=== PATIENT | male | born 1950 | race Caucasian/White ===

== ENCOUNTER 2019-03-14 15:59 | Inpatient (IN) | payer MEDICARE ==
[~2019-03-14 15:59] MED LIST: SODIUM CHLORIDE 0.9% (PF) 10 ML VIAL ONE; niCARdipine 25 MG/10 ML VIAL ONE
[2019-03-14] MEDS ORDERED: EPINEPHrine 10 ML SYRINGE (0.1 MG/ML) ONE (16:00)
[2019-03-14] MEDS ORDERED: SODIUM BICARB 8.4% 50 ML SYR (1 MEQ/ML) ONE (16:00)
[2019-03-14] MEDS ORDERED: BIVALIRUDIN BOLUS 250 MG/50 ML IV ONE (16:25)
[2019-03-14] MEDS ORDERED: BIVALIRUDIN 250 MG in SODIUM CHLORIDE 0.9% 50 ML IV ONE (16:25)
[2019-03-14] MEDS ORDERED: SODIUM CHLORIDE 0.9% 500 ML 500 ML IV ONE ×7 (16:30→23:25)
[2019-03-14 16:40] LABS: Basophils # (A) 0.1 k/uL (0-0.2); Basophils % (A) 1 %; Eosinophils # (A) 0.2 k/uL (0-0.7); Eosinophils % (A) 2 %; HCT 37.7 % (39.0-53.0); HGB 12.5 gm/dL (13.0-17.5); Lymphocytes # (A) 3.9 k/uL (1.0-4.8); Lymphocytes % (A) 27 %; MCH 31.1 pg (25.0-35.0); MCV 94.1 fL (80.0-100.0); Mean Platelet Volume 7.4; Monocytes # (A) 0.4 k/uL (0-1.0); Monocytes % (A) 3 %; Neutrophils # (A) 9.5 k/uL (1.3-7.7); Neutrophils % (A) 67 %; Platelet Count 133 k/uL (150-450); RDW 14.2 % (11.5-15.5); WBC 14.2 k/uL (3.8-10.6)
[2019-03-14 16:48] LABS: Albumin 2.8 g/dL (3.5-5.0); Calcium 7.5 mg/dL (8.4-10.2); Potassium 4.1 mmol/L (3.5-5.1); Total Bilirubin 1.1 mg/dL (0.2-1.3); Total Protein 4.8 g/dL (6.3-8.2)
--- NOTE | 2019-03-14 16:53 | ED ---
General Adult HPI - General Stated complaint: Cardiac Arrest Time Seen by Provider: 03/14/19 16:02 - History of Present Illness Initial comments: Dictation was produced using [employer] dictation software. please excuse any grammatical, word or spelling errors. Chief Complaint: 68-year-old male brought in for cardiac arrest. History of Present Illness: Patient 68-year-old male who is brought in by EMS for cardiac arrest. According to EMS patient was down for approximately 10-20 minutes. went away to the grocery store for a short time. She came home and noticed that he was on the ground EMS was called. Patient was found in cardiac arrest. CPR was started patient was resuscitated. He had an incident where he lost pulses while en route. Patient was allegedly complaining of some shoulder pain the day prior. As far as we know reports the patient does not have any medical history or cardiac history. Patient was intubated in route. EMS performed prehospital EKG showing signs of inferior STEMI. Unable to obtain ROS secondary to mental status PHYSICAL EXAM: General Impression: Obtunded HEENT: Normocephalic atraumatic, fixed dilated pupils, pale Cardiovascular: Bradycardic Chest: Bilateral lung sounds Abdomen: abdomen soft, non-tender, non-distended, no organomegaly Musculoskeletal: no peripheral edema Motor: no focal deficits noted Neurological: Fixed and dilated pupils ED course: 68-year-old male presents with cardiac arrest. Prehospital EKG is performed showing ST segment elevation OK with ST elevations to the inferior leads. She hypotensive bradycardic upon initial arrival. He is intubated in route with 8 ET tube. Patient arrived to the emergency Department with pulses. He then began to become bradycardic. CPR was continued for several minutes with returns of spontaneous circulation. Surgeries catheter line was placed under ultrasound guidance to the left groin. Cardiology was notified it right away. Patient then again lost pulses. Cardiology was at bedside reviewed EKG and spoke to family. They recommend patient be taken back to the emergency depart ment. CPR was continued and patient did receive return of spontaneous circulation. Patient is dispositioned to Lab for cardiac intervention. Prior to disposition to the general labor cardiology who requested starting dopamine pressor infusion. Patient case was discussed with Dr. madrid't was willing to accept admission. Cardiology did not request Cipro there me a protocol. Furthermore they did not want arterial line. EKG interpretation: Ventricular rate 96, undetermined rhythm, right bundle br anch block, acute myocardial infarction, QS 134, QTC 593. EKG consistent with ST segment elevation OK - Related Data Home Medications Medication Instructions Recorded Confirmed [place] Carbonate [[place] 300 mg PO BID 03/14/19 03/14/19 Carbonate ER] Lovastatin [Altoprev] 20 mg PO DAILY 03/14/19 03/14/19 Metoprolol Succinate [Toprol XL] 100 mg PO DAILY 03/14/19 03/14/19 Temazepam 7.5 mg PO HS PRN 03/14/19 03/14/19 amLODIPine [Norvasc] 10 mg PO DAILY 03/14/19 03/14/19 cloNIDine HCL [Catapres] 0.1 mg PO HS 03/14/19 03/14/19 Allergies Allergy/AdvReac Type Severity Reaction Status Date / Time No Known Allergies Allergy Unverified 03/14/19 16:06 Review of Systems ROS Statement: Those systems with pertinent positive or pertinent negative responses have been documented in the HPI. ROS Other: All systems not noted in ROS Statement are negative. Procedures - Central Line Placement Left Femoral Consent Obtained: emergent situation Patient Placed on Monitor/Pulse Ox: Yes MD Prep: mask, gown, gloves Central Line Prep: Povidone-Iodine 1% Ultrasound Used for Placement: Yes Central Line Lumen Inserted: triple Central Line Position: good blood return, all ports aspirated, flushed, capped, sutured in place with 3-0 nylon Dressing Applied: Tegaderm Patient Tolerated Procedure: well Complications: none Medical Decision Making - Lab Data Result diagrams: 03/14/19 16:30 Lab Results 03/14/19 Range/Units 16:30 WBC 14.2 H (3.8-10.6) k/uL RBC 4.00 L (4.30-5.90) m/uL Hgb 12.5 L (13.0-17.5) gm/dL Hct 37.7 L (39.0-53.0) % MCV 94.1 (80.0-100.0) fL MCH 31.1 (25.0-35.0) pg MCHC 33.0 (31.0-37.0) g/dL RDW 14.2 (11.5-15.5) % Plt Count 133 L (150-450) k/uL Neutrophils % 67 % Lymphocytes % 27 % Monocytes % 3 % Eosinophils % 2 % Basophils % 1 % Neutrophils # 9.5 H (1.3-7.7) k/uL Lymphocytes # 3.9 (1.0-4.8) k/uL Monocytes # 0.4 (0-1.0) k/uL Eosinophils # 0.2 (0-0.7) k/uL Basophils # 0.1 (0-0.2) k/uL Critical Care Time Critical Care Time: Yes Total Critical Care Time: 31 Disposition Clinical Impression: Cardiac arrest, STEMI (ST elevation myocardial infarction) Disposition: ADMITTED IP TO THIS [facility] Condition: Critical Referrals: Senthil Rollins DO [Primary Care Provider] - 1-2 days Decision Time: 16:54
[2019-03-14] MEDS ORDERED: NALOXONE 0.4 MG/ML 1 ML VIAL IV PRN (16:55)
--- NOTE | 2019-03-14 16:58 | XR ---
EXAMINATION TYPE: XR chest 1V portable DATE OF EXAM: 03/14/2019 COMPARISON: NONE HISTORY: Check tube placement TECHNIQUE: Single frontal view of the chest is obtained. FINDINGS: Endotracheal tube is 5.5 cm from the elizabeth. There is no gross heart failure. There are ch est leads. Costophrenic angles are clear. Thoracic aorta is atheromatous. There is right shoulder pro sthesis. IMPRESSION: No heart failure or pulmonary consolidation.
[2019-03-14] MEDS ORDERED: ATROPINE SULFATE 0.1 MG/ML 10ML SYRINGE IV ONE (16:59)
[2019-03-14] MEDS: EPINEPHrine 10 ML SYRINGE (0.1 MG/ML) IV ONE ×5 (16:59→17:36)
[2019-03-14 17:05] LABS: INR 1.1 (<1.2); Prothrombin Time 11.6 sec (9.0-12.0)
[2019-03-14 17:06] LABS: Creatine Kinase MB 85.7 ng/mL (0.0-2.4)
[2019-03-14] MEDS ORDERED: LIDOCAINE 1% INJ 10MG/ML (20 ML MDV) SQ ONE (17:09)
[2019-03-14 17:12] LABS: Troponin I 15.4 ng/mL (0.000-0.034)
[2019-03-14] MEDS ORDERED: SODIUM BICARB 8.4% 50 ML VIAL (1 MEQ/ML) IV ONE ×2 (17:20→18:32)
[2019-03-14] MEDS ORDERED: SODIUM CHLORIDE 0.9% 1,000 ML IV ONE (17:40)
[2019-03-14] MEDS ORDERED: DOPamine DRIP 800 MG in DEXTROSE/WATER 1 250ML.BAG IV ONE ×2 (17:41→18:41)
[2019-03-14] MEDS ORDERED: IOPAMIDOL-370 100ML BTL INJ ONE ×2 (17:44→18:41)
[2019-03-14] MEDS ORDERED: EPINEPHrine 10 ML SYRINGE (0.1 MG/ML) IV ONE (17:45)
[2019-03-14] MEDS ORDERED: NOREPINEPHRINE 4 MG in SODIUM CHLORIDE 0.9% 250 ML IV ONE (17:46)
[2019-03-14] MEDS ORDERED: MORPHINE SULFATE 4 MG/ML SYRINGE ONE (18:02)
[2019-03-14] MEDS ORDERED: MORPHINE SULFATE 4 MG/ML SYRINGE IVP ONE (18:03)
[2019-03-14 18:12] LABS: ABG Base Excess -10.4 mmol/L; ABG HCO3 17 mmol/L (21-25); ABG PCO2 39 mmHg (35-45); ABG PH 7.25 (7.35-7.45); ABG PO2 120 mmHg (83-108); ABG TCO2 18 mmol/L (19-24)
[2019-03-14] MEDS ORDERED: TICAGRELOR 90 MG TAB ONE (18:27)
[2019-03-14] MEDS ORDERED: TICAGRELOR 90 MG TAB NG-TUBE ONE (18:35)
[2019-03-14] MEDS ORDERED: NOREPINEPHRINE 32 MG in SODIUM CHLORIDE 0.9% 218 ML IV SCH (18:45)
[2019-03-14 19:14] LABS: Glucose,Whole Blood 172 mg/dL (75-99)
[2019-03-14] MEDS: SODIUM CHLORIDE 0.9% 1,000 ML IV SCH (19:17)
[2019-03-14 19:25] LABS: Basophils # (A) 0.1 k/uL (0-0.2); Basophils % (A) 1 %; Eosinophils # (A) 0.3 k/uL (0-0.7); Eosinophils % (A) 1 %; HCT 45.4 % (39.0-53.0); Lymphocytes # (A) 1.3 k/uL (1.0-4.8); Lymphocytes % (A) 6 %; MCH 29.9 pg (25.0-35.0); MCHC 32.9 g/dL (31.0-37.0); MCV 90.8 fL (80.0-100.0); Mean Platelet Volume 7.4; Monocytes # (A) 0.6 k/uL (0-1.0); Monocytes % (A) 3 %; Neutrophils # (A) 19.5 k/uL (1.3-7.7); Neutrophils % (A) 90 %; Platelet Count 225 k/uL (150-450); RDW 14.7 % (11.5-15.5); WBC 21.8 k/uL (3.8-10.6)
[2019-03-14 19:31] LABS: ABG Base Excess -6.4 mmol/L; ABG HCO3 19 mmol/L (21-25); ABG PCO2 31 mmHg (35-45); ABG PH 7.39 (7.35-7.45); ABG PO2 >400 mmHg (83-108); ABG TCO2 20 mmol/L (19-24)
[2019-03-14 19:32] LABS: Calcium 7.4 mg/dL (8.4-10.2); Magnesium 2.4 mg/dL (1.6-2.3)
--- NOTE | 2019-03-14 19:35 | XR ---
EXAMINATION TYPE: XR chest 1V portable DATE OF EXAM: 03/14/2019 COMPARISON: Today HISTORY: Tube placement TECHNIQUE: Single frontal view of the chest is obtained. FINDINGS: Endotracheal tube is 5 cm from the elizabeth. There is right shoulder prosthesis. Lungs are c lear of consolidation. There is no heart failure. Heart size is normal. There is nasogastric tube wit h the tip probably in the gastric fundus. IMPRESSION: No active cardiopulmonary disease. Normal heart.
[2019-03-14] MEDS ORDERED: PROPOFOL 1,000 MG in EMPTY BAG 1 BAG IV SCH (20:00)
--- NOTE | 2019-03-14 20:04 | CONS ---
CONSULTATION Mr. Farias is a 68-year-old gentleman who is seen in the emergency room after sustaining a cardiac arrest at home. The history was obtained from the . This patient has a history of diabetes, hypertension, but had been otherwise healthy. The patient's went out for groceries and she came back in less than 20 minutes and the patient was found on the floor unresponsive. EMS was called. The EMS arrived within 10 minutes and the CPR was started. After doing CPR for about 10 minutes, the pulse was obtained and patient was brought to the emergency room. Intermittently transiently there was a loss of pulse with continued CPR. In the emergency room patient's blood pressure initially was 70. EKG was suggestive of acute inferior wall myocardial infarction. The patient needed again brief CPR. The patient is currently intubated, has a good pulse and the blood pressure was 110/70. The patient's condition was discussed with the . It was thoroughly explained to her that he could have sustained significant neurological damage, but they wanted to proceed with everything what can be done. In view of that, the patient was brought to the clinical laboratory scientist for immediate cardiac intervention. The patient has a history of diabetes and hypertension. PAST MEDICAL HISTORY: Includes history of knee surgery and shoulder surgery. PHYSICAL EXAMINATION: At present reveals a 68-year-old gentleman who is currently unresponsive. Pupils are dilated and not reacting to the light. Head/HEENT/neck examination is negative. First and second heart sounds are normal. No significant murmurs are noted. Lungs reveal bilateral diminished air entry. Abdomen is negative. EXTREMITIES: Peripheral pulses 2+. EKG is suggestive of acute inferior wall myocardial infarction. FINAL IMPRESSION: This patient is status post cardiac arrest with acute inferior wall myocardial infarction. The patient is status post CPR. It is possible that the patient could have suffered a significant neurological damage. The fully understands. We will proceed with a cardiac catheterization and for possible percutaneous intervention. The patient's overall prognosis is very poor. Thank you for the consultation. MMTANISHAL / IJN: [id number] /
--- NOTE | 2019-03-14 20:19 | CC ---
CARDIAC CATHETERIZATION REPORT DATE OF SERVICE: 03/14/2019. PROCEDURE PERFORMED: 1. Transvenous temporary pacemaker from left femoral venous approach with a 6-Russian introducer. 2. Coronary angiography. 3. PTCA and stenting of a totally occluded right coronary artery with a drug-eluting stent. 4. Intra-aortic balloon pump placement from right femoral arterial approach. PERFORMED BY: Dr. Emilio Bustamante. SEDATION: Moderate conscious sedation time was 57 minutes. CLINICAL INFORMATION: Mr. Kaden Farias is a 68-year-old gentleman with probably history of hypertension and hyperlipidemia who was brought to the emergency room as a cardiac arrest. Apparently, he was down for unknown amount of time, but after his called the EMS, there was at least 12 additional minutes before CPR was actually started based on the EMS run sheet. The patient had multiple times CPR in the ER along with being shocked and once he came to the cath lab manager, he also had CPR performed on the table in the cath lab manager. This patient was seen and evaluated by Dr. Deidra Mcclendon. He was advised coronary angiography and intervention knowing fully well that the success rate from a neurological standpoint was questionable, but because he was a young man and seemed to have on and off CPR with a eventual reasonable blood pressure, he was advised intervention. He presented with acute inferior [place] and cardiac arrest. PROCEDURE NOTE: There was a triple-lumen catheter in the left femoral vein. This was exchanged over a wire by Dr. Deidra Mcclendon with a 6-Russian introducer. I then went ahead and placed a temporary transvenous pacemaker under fluoroscopic guidance with a good threshold of 0.6 mV. Pacemaker was set at a backup rate of 50 beats per minute with a mA of 5.0. I then placed a 6-Russian introducer in the right femoral artery and performed a coronary angiography with a right Jacki type guide catheter for the right coronary artery and a standard left catheter for the left coronary artery. 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 Left ventriculogram was not performed. CORONARY ANGIOGRAPHY FINDINGS: RIGHT CORONARY ARTERY: This is a very large superdominant vessel that is totally occluded in the proximal portion without any antegrade flow. There appears to be a significant amount of thrombus burden. LEFT MAIN CORONARY ARTERY: This is a long patent vessel free of significant disease that bifurcates into LAD and circumflex. LEFT ANTERIOR DESCENDING CORONARY ARTERY: Good caliber, good distribution, tortuous vessel that gives off a septal and smaller diagonal branches, runs all the way to the apex and curves over the apex to supply the inferoapical portion of left ventricle. In the midportion, there appears to be about a 35% lesion involving the LAD. There is moderate calcification noted in the LAD. The mid lesion is about 35% after a diagonal branch. There is moderate amount of calcification in the LAD system. LEFT POSTERIOR CIRCUMFLEX CORONARY ARTERY: Nondominant vessel, gives off a single obtuse marginal that runs laterally, it is tortuous. Has mild to moderate calcification. No significant disease. The continuation of circumflex in the AV groove is small in caliber and distribution and there is a small distal posterolateral branch. Before posterolateral branch, there is a left atrial circumflex branch that has minor irregularities. CIRCUMFLEX CORONARY ARTERY: Circumflex does not have any significant disease. FINAL IMPRESSION: This patient has total occlusion of a superdominant RCA. No significant disease in the left system with a long left main and calcified LAD and circumflex, but no significant obstructive disease. RECOMMENDATIONS: I recommended PCI of RCA and proceeded to perform this expeditiously. PCI PROCEDURE DETAILS: A standard right Jacki guide catheter was used to cannulate the right coronary artery. A run-through wire was used to cross the lesion. Predilatation of the total occlusion was performed with 3.0 caliber 12 mm long Trek balloon. I then noted that the vessel opened up and distally bifurcates into a smaller PLV and larger PDA. I placed a wire in the PDA. I deployed a 23 mm long 3.25 caliber Xience stent at 12 atmospheres. Patient had an excellent angiographic result. His ST-segment elevation inferior leads persisted. Excellent angiographic result was achieved. I then took the catheters out and proceeded to place the intraaortic balloon pump under fluoroscopic guidance with a good augmentation of nearly 105 mmHg. The patient was on 10 mcg of Levophed, 5 mcg of dopamine and intra-aortic balloon pump at 2:1 and he was sent to the ICU with a augmented pressure of about 100 with a 500 mL of urine. An NG tube was placed and patient was given Brilinta 180 mg through the NG-tube. He was also given Angiomax bolus and infusion as per protocol. Overall prognosis is poor given the fact he may have had a long downtime, but angiographically the result was excellent. Angiographic findings and results were discussed with the patient and family, but overall poor prognosis was also explained given the fact he may have had significantly longer down time prior to the arrival of any help. MMASHLEY / ZOHAIB: [id number] /
[2019-03-14] MEDS ORDERED: ATORVASTATIN 80 MG TAB PO SCH (21:00)
[2019-03-14] MEDS ORDERED: CHLORHEXIDINE GLUCONATE 15 ML CUP MUCOUS MEM SCH (21:00)
--- NOTE | 2019-03-14 23:37 | HP ---
HISTORY AND PHYSICAL DATE OF SERVICE: 03/14/2019. CHIEF COMPLAINTS: Cardiac arrest. HISTORY OF PRESENT ILLNESS: This 68-year-old gentleman with a past medical history of multiple medical illnesses, hypertension, hyperlipidemia, being followed by Dr. Rollins in the outpatient setting has sustained an out of hospital cardiac arrest. Apparently the went out and came back within 20 minutes and the patient was found to be unresponsive. EMS was called. CPR was initiated. The patient regained pulse in between but however the patient had intermittent circulatory compromise. The patient was mechanically ventilated and intubated in the ER and after discussion detailed discussion with the family, despite the grave prognosis, the family would like to proceed with cardiac intervention studies. Cardiology performed a cardiac catheterization and as well as PTCA and stenting of the totally occluded right coronary artery and intraaortic balloon pump placement and transvenous temporary pacemaker placement. The patient is mechanically intubated and transferred to ICU. Currently the patient's respirations are deep and the patient also sedated. Dr. Duncan has been consulted. The patient is also likely to have neurological damage because of the chronic hypoxia and chronic circulatory and the lungs are clear to collapse as detailed above. The patient being closely monitored at this time. The patient unable to give coherent history. Most of the history taken my discussions with staff as well as review of chart at this time. The patient is being followed by Dr. Rollins in the outpatient setting. PAST MEDICAL HISTORY: 1. Hypertension. 2. Hyperlipidemia. MEDICATIONS ARE: 1. Catapres 0.1 q.h.s. 2. Norvasc 10 mg. 3. Temazepam 7.5 mg q.h.s. p.r.n. 4. Toprol-XL 100 mg p.o. daily. 5. Lovastatin 20 mg p.o. daily. 6. [place] 300 mg p.o. b.i.d. ALLERGIES: None. FAMILY HISTORY: Family history, social history and review of systems could not be taken because the patient is mechanically ventilated and sedated. PHYSICAL EXAM: VITAL SIGNS: Pulse is 103. Blood pressure 86/75, respiration 20, temperature was 91.4 and pulse ox 93 percent. The patient had aortic balloon pulsations. Otherwise, conjunctivae: Pupils are extremely dilated. Oral mucosa moist. NECK: No jugular venous distention. No carotid bruit. No lymph node enlargement. CARDIOVASCULAR: S1, S2 muffled. No S3, no S4. RESPIRATORY: Breath sounds diminished in the bases. Bilateral scattered rhonchi and crackles. ABDOMEN: Soft, nontender. No mass. No ascites. No hepatosplenomegaly. LEGS: No edema. No swelling. NERVOUS SYSTEM: The patient is mechanically ventilated and sedated. SKIN no ulcer, rash, bleeding. JOINTS: No active deforming arthropathy. Lymphatics: No lymph nodes palpable in the neck, axillae or groin. LABS: At this time WBC 14.2, hemoglobin 12.5, ABGs 7.25, sodium 130, potassium 4.1, CO2 16, creatinine 1.38, glucose 311 and AST 275, ALT is 204, and total creatine kinase 07/1972. Troponin 15.4, albumin is 2.8. [place] is 0.4 and the EKG showed hyperacute inferior wall myocardial infarction. ASSESSMENT: 1. Acute ST segment elevation inferior wall myocardial infarction status post cardiac catheterization and stenting of the RCA. 2. Acute out of hospital cardiac arrest secondary to myocardial infarction. 3. Acute respiratory failure secondary to cardiac arrest on mechanical ventilation. 4. Change in mental status, possibly anoxic encephalopathy. 5. Severe hypotension, cardiogenic shock on intra-aortic balloon pump. 6. Hypertension. 7. Hyperlipidemia. 8. Increased WBC. 9. Anemia. 10.Increased creatinine with acute renal failure possibly prerenal acute tubular necrosis secondary to hypotension. 11.Increased AST, ALT, possibly ischemic hepatitis. 12.Troponin elevated up to 83.7. 13.FULL CODE. RECOMMENDATIONS AND DISCUSSION: In this 68-year-old gentleman who presented with multiple complex medical issues, we will monitor the patient closely. Continue current management and symptomatic treatment. We will closely follow with Cardiology. We will continue with antiplatelet agents. Continue with pressor support. Continue with aortic balloon counterpulsation balloon pump. Otherwise dual antiplatelet agents. Proton pump inhibitors. DVT prophylaxis. Repeat labs. The overall prognosis is guarded because of multiple complex medical issues. Medical issues and further. Further recommendations to follow. A copy of dictation being forwarded to Dr. Rollins who is the primary physician. MMODL / IJN: [id number] / MTDD
[2019-03-15] MEDS ORDERED: HEPARIN SODIUM,PORCINE 5,000 UNIT/ML 1 ML VIAL SQ SCH
[2019-03-15] MEDS: SODIUM CHLORIDE 0.9% 1,000 ML IV SCH (00:52)
[2019-03-15 01:04] VITALS: RESP 20
[2019-03-15 01:31] LABS: Amorphous Sediment,Urine Occasional /hpf; Appearance,Urine Cloudy (Clear); Bilirubin,Urine Negative (Negative); Blood,Urine Moderate (Negative); Color,Urine Yellow; Glucose,Urine (UA) Trace (Negative); Ketones,Urine Negative (Negative); Leukocyte Esterase,Urine Negative (Negative); Mucus,Urine Rare /hpf; Nitrite,Urine Negative (Negative); PH, Urine 5.5 (5.0-8.0); Protein,Urine 2+ (Negative); RBC,Urine 13 /hpf (0-5); Specific Gravity,Urine 1.037 (1.001-1.035); Squamous Epithelial Cell,Urine 12 /hpf (0-4); Urobilinogen,Urine <2.0 mg/dL (<2.0)
[2019-03-15 01:35] LABS: Amphetamine Screen,Urine Not Detected (NotDetected); Barbiturate Screen,Urine Not Detected (NotDetected); Benzodiazepines Screen,Urine Not Detected (NotDetected); Cocaine Screen,Urine Not Detected (NotDetected); Methadone Screen, Urine Not Detected (NotDetected); Opiate Screen,Urine Detected (NotDetected); Oxycodone Screen, Urine Not Detected (NotDetected); Phencyclidine Screen,Urine Not Detected (NotDetected); Tricyclic Antidepressant,Urine Not Detected (NotDetected); Urn Cannabinoid Scrn Detected (NotDetected)
[2019-03-15] MEDS ORDERED: NOREPINEPHRINE 32 MG in SODIUM CHLORIDE 0.9% 218 ML IV SCH (02:49)
[2019-03-15 04:21] VITALS: TEMP 99.3
[2019-03-15 04:44] LABS: ABG Base Excess -9.1 mmol/L; ABG HCO3 19 mmol/L (21-25); ABG Oxygen Saturation 91.5 % (94-97); ABG PCO2 47 mmHg (35-45); ABG PH 7.21 (7.35-7.45); ABG PO2 73 mmHg (83-108); ABG TCO2 20 mmol/L (19-24)
[2019-03-15 06:03] VITALS: BP 74/31; PULSE 124
--- NOTE | 2019-03-15 06:51 | XR ---
EXAMINATION TYPE: XR chest 1V portable DATE OF EXAM: 03/15/2019 COMPARISON: Prior chest x-ray 03/14/2019 HISTORY: Intubated TECHNIQUE: Single frontal view of the chest is obtained. FINDINGS: Endotracheal tube and NG tube are overlying appropriate positions. There is an intra-aorti c balloon pump marker present at approximately the T3-T4 disc space level. Transvenous pacer is overl rosales the right ventricle. The heart is enlarged. Ascending aorta appears prominently although patient is rotated. Apical pleural thickening on the right is again seen greater than left. No evident pneum othorax or pleural effusion. Exam is expiratory. No focal airspace disease evident. Question some pro minence of interstitium. Patient is post right shoulder arthroplasty. There are overlying cardiac corey ds. IMPRESSION: Findings are similar to prior exam. Possible aortic aneurysm, heart size may be accentua teagan by rotation, technique. There may be a component of volume overload, pulmonary venous hypertensio n and interstitial edema.
[2019-03-15] MEDS ORDERED: TICAGRELOR 90 MG TAB PO SCH (09:00)
[2019-03-15] MEDS ORDERED: PANTOPRAZOLE 40 MG/10 ML VIAL IV SCH (09:00)
[2019-03-15] MEDS ORDERED: ASPIRIN 81 MG PO SCH (09:00)
--- NOTE | 2019-03-15 10:20 | PN ---
PROGRESS NOTE This gentleman presented yesterday with a cardiac arrest and had an acute inferior ST- elevation [place]. After resuscitating him and multiple episodes of CPR, he underwent stenting of RCA. He was placed on a balloon pump for a right ventricular infarct and IV fluids and combination of Levophed and dopamine. However, through the night, his need for pressors increased quite a bit. Neurologically, he seemed quite unresponsive and family early this morning made a decision to withdrawal treatment and therefore this morning at about 6:37 a.m. he has . At the time of my evaluation, patient was in agonal breathing. Prognosis remained quite poor. Yesterday, I had a long discussion with the family including the , daughter and son-in-law regarding the poor prognosis that we were dealing with. They were quite understanding of the situation and appreciative of the efforts. This patient therefore passed today and the cause of is acute inferior [place] with cardiac arrest. MMASHLEY / ZOHAIB: [id number] /
--- NOTE | 2019-03-15 10:26 | CONS ---
CONSULTATION PULMONARY CONSULTATION: DATE OF SERVICE: 03/15/2019. REASON FOR CONSULTATION: ICU management. This is a gentleman who is 68 years of age. He was brought into the emergency room by EMS yesterday. The patient apparently was found down at home for about 20 minutes in full cardiac arrest. EMS did not arrive for another time 20 minutes. CPR was started. He was intubated on the field. He had additional cardiopulmonary resuscitation in the emergency room with multiple episodes of cardiopulmonary arrest. The patient was eventually taken to the catheterization laboratory. The patient had a stent placed to his right coronary artery, had a balloon pump inserted and transvenous pacemaker. He was shipped back to the ICU. I did speak to the ER physician about this patient, Dr. Ramsey and also to Dr. Caridad Bustamante, the grounds keeper. Both were concerned about the patient's neurologic status as he had prolonged resuscitation and significant arrest time with inadequate blood flow to the brain. Anyway, this morning, he is in the ICU, intubated. I have been on the phone a couple times with the nurse, Jono. The patient's overall situation has deteriorated. He has got the transvenous pacemaker in place. He had a stent placed to his right coronary artery. He has a balloon pump in and augmenting at 1 to 2. Despite that, he is on dopamine at 5 mcg/kg per per minute and Levophed at 70 mcg/minute. This is maximal dose. He is not responding to these medications and his blood pressure is only about 75 systolic. He was made a DNR last night by the family and this morning the family wants to withdraw life support. I did an exam on him. He was not triggering the ventilator. His pupils were fixed and dilated. He had no gag reflex. He did not respond to verbal or painful stimuli. There was no corneal reflex and doll's eyes reflexes were absent. He was not receiving any sedation at this time. He is currently on the ventilator on the assist-control mode rate of 20, tidal volume 500, 70% FiO2 and PEEP of 5. Blood gases on those settings showed a PO2 of 73 and PaCO2 of 47, and a pH of 7.2. As I mentioned, dopamine was a 5 mcg/kg per per minute., 0.9 at 150 and hour, Levophed at 17 mcg/minute. He has not had any propofol for some time. HOME MEDICATIONS: Included lithium, lovastatin, metoprolol, temazepam, amlodipine, and clonidine. ALLERGIES: Denied. PAST MEDICAL HISTORY: Positive for hypertension and hyperlipidemia. He might have a history of bipolar disorder as well since he was on lithium. Not much additional history is known at this time. FAMILY HISTORY: Not known. OCCUPATION HISTORY: Not known. SURGICAL HISTORY: Not known. REVIEW OF SYSTEMS: Cannot be obtained. I did speak to the family in detail. There was a , a daughter and a son-in-law. Some other family members as well as including a sibling were present. They were adamant about taking the patient off the life support. I asked whether not a non licensed nuclear plant operator or applications programmer analyst should be called and they said no. Currently, his vital signs include a blood pressure 74/31 with mean of 45, a saturation of 86%, respiratory rate which was 28 breaths per minute, all machine delivered and a heart rate which is 125. His temperature was 99.3. Appears in no acute distress. Completely unresponsive. HEENT examination is grossly unremarkable. There is an orally placed endotracheal tube and NG tube. Pupils are fixed and dilated. There is absent doll's eyes. No corneal reflex. No gag reflex. NECK: Supple. Full range of motion. CARDIOVASCULAR: Examination reveals tachycardia. Heart rate 125. Heart sounds are very distant. No distinct murmur noted. LUNGS: Reveal coarse rhonchi. Breath sounds are diminished. ABDOMEN: Soft. No bowel sounds. EXTREMITIES: Intact. No edema. SKIN: Without rash. NEUROLOGIC: Examination includes absent response to verbal and painful stimuli. The patient does not trigger the ventilator. No corneal reflex. No gag reflex. An absent doll's eyes reflex. LABS: Reviewed. The most recent blood gas shows a PO2 of 73, a PaCO2 of 47, and a pH of 7.21. That was on 70% FiO2. His morning labs are not yet back yet. His drug screen was positive for opiates and marijuana. His lithium level was 0.4. His last troponin was 83.7. His CK was 1072. The rest of his labs are reviewed. His medications are reviewed. He was on aspirin, Lipitor, chlorhexidine, dopamine, subcu heparin, Narcan, Levophed at maximal dose, Protonix and his IVs. They also had written an order for some Brilinta. Chest x-ray is reviewed. It shows a properly placed endotracheal tube. There is an NG tube in place. Lung paige are relatively clear. Maybe some mild atelectasis at the right lung base. ASSESSMENT: 1. [id number] cardiopulmonary arrest with significantly prolonged resuscitation, multiple episodes of arrest and multiple rounds of resuscitation with likely significant anoxic brain injury. 2. Status post stenting of his right coronary artery. 3. Status post placement of a transvenous pacemaker and intra-aortic balloon pump to augment hemodynamics. 4. History of hypertension. 5. History of hyperlipidemia. 6. Possible bipolar disorder. 7. History of insomnia. 8. Combined respiratory and metabolic acidosis. 9. Profound hypotension. 10.Inferior wall myocardial infarction. PLAN: The patient is already a DNR. I had a long discussion with the , the daughter, the son-in-law and sibling. They would prefer to have the patient removed from life support. The 's only concern was that the patient not suffer. I told them we would use narcotics liberally if we felt he was having any pain or there was any difficulty in breathing. I do not believe he is going to last more than a few seconds or a few minutes. He is receiving a lot of support at this time. Even with maximal Levophed dose is 70 mcg/minute, his blood pressure is only 74 systolic. This is with a transvenous pacemaker and intra-aortic balloon pump. We will go ahead and implement the comfort measures only ordered package. No additional recommendations are made. Very sad situation to say the last. Again, I did have a long conversation with the family about this. Additional recommendations and suggestions are forthcoming. MMTANISHAL / ZOHAIB: [id number] /
--- NOTE | 2019-03-16 09:45 | DS ---
DISCHARGE SUMMARY PRIMARY CAUSE OF : Acute ST-segment elevation inferior wall myocardial infarction, status post cardiac catheterization and stenting of the right coronary artery. OTHER DIAGNOSES: 1. Acute out of hospital cardiac arrest secondary to myocardial infarction. 2. Acute respiratory failure hypoxic, secondary to cardiac arrest, on mechanical ventilation. 3. Change in mental status, possible anoxic encephalopathy, anoxic brain injury. 4. Severe hypotension cardiogenic shock and intraaortic balloon pump. 5. Hypertension. 6. Hyperlipidemia. 7. Increased WBC. 8. Anemia. 9. Increased creatinine with acute renal failure, possible acute tubular necrosis secondary to hypotension. 10.Increased AST, ALT, possibly ischemic hepatitis. 11.Troponin elevated up to 83.7. HISTORY OF PRESENT ILLNESS: This is a 68-year-old gentleman with a past medical history of multiple medical problems. Otherwise, being followed by Dr. Rollins in the outpatient setting was admitted with out of hospital cardiac arrest of undetermined duration. The patient had cardiac resuscitation and multiple and prolonged episodes of possibly circulated shock. The patient underwent a cardiac catheterization per Cardiology and patient underwent stenting of the totally occluded RCA. The patient also had multiple medical issues including anoxic brain injury, possibly and also acute hypoxic respiratory failure. Patient was monitored in ICU. Multiple consultants saw the patient and aggressive treatment initiated with pressor support and other medications including antiplatelet agents, but; however, the patient succumbed to his illness as detailed above. The prognosis was extremely guarded throughout the hospitalization which was discussed with family members on multiple occasions. See multiple consultation notes and progress notes from Cardiology and Pulmonology, staff notes for further details. MMODL / IJN: [id number] /
== END 2019-03-15 09:06 | disposition expired | DRG 270 ==
LOC: EC 15:59 → 2SICU 16:55
PROVIDERS: ADMIT Internal Medicine; ATTEND Internal Medicine
PROC: 02HV33Z Insertion of Infusion Device into Superior Vena Cava, Percutaneous Approach (ICD-10-PCS; 2019-03-14)
PROC: 5A12012 Performance of Cardiac Output, Single, Manual (ICD-10-PCS; 2019-03-14)
PROC: 5A1935Z Respiratory Ventilation, Less than 24 Consecutive Hours (ICD-10-PCS; 2019-03-14)
PROC: 0BH17EZ Insertion of Endotracheal Airway into Trachea, Via Natural or Artificial Opening (ICD-10-PCS; 2019-03-14)
PROC: 027034Z Dilation of Coronary Artery, One Artery with Drug-eluting Intraluminal Device, Percutaneous Approach (ICD-10-PCS; principal; 2019-03-14 16:31)
PROC: 5A02210 Assistance with Cardiac Output using Balloon Pump, Continuous (ICD-10-PCS; 2019-03-14 16:31)
PROC: 4A023N7 Measurement of Cardiac Sampling and Pressure, Left Heart, Percutaneous Approach (ICD-10-PCS; 2019-03-14 16:31)
PROC: B2111ZZ Fluoroscopy of Multiple Coronary Arteries using Low Osmolar Contrast (ICD-10-PCS; 2019-03-14 16:31)
PROC: 5A1223Z Performance of Cardiac Pacing, Continuous (ICD-10-PCS; 2019-03-14 16:31)
DX: I21.19 ST elevation (STEMI) myocardial infarction involving other coronary artery of inferior wall (principal); J96.01 Acute respiratory failure with hypoxia; N17.0 Acute kidney failure with tubular necrosis; E87.4 Mixed disorder of acid-base balance; G93.1 Anoxic brain damage, not elsewhere classified; D64.9 Anemia, unspecified; E11.9 Type 2 diabetes mellitus without complications; E78.5 Hyperlipidemia, unspecified; I10 Essential (primary) hypertension; I25.10 Atherosclerotic heart disease of native coronary artery without angina pectoris; I45.10 Unspecified right bundle-branch block; R57.0 Cardiogenic shock; Z66 Do not resuscitate; Z79.899 Other long term (current) drug therapy; Z51.5 Encounter for palliative care
CPT/HCPCS: 33210; 33967; 36415; 36556; 36600; 71045; 80048; 80053; 80178; 80306; 81001; 82550; 82553; 82805; 83735; 84484; 85025; 85610; 85730; 87086; 92950; 93458; 94002; 94003; 96365; 96376; 99291; C1874